=== PATIENT | male | born 1950 | race Caucasian/White ===

== ENCOUNTER 2019-03-12 06:06 | Day surgery (SDC) | payer OTHER ==
[~2019-03-12] VITALS: Ht 170.2 cm; Wt 90.0 kg
[~2019-03-12 06:06] MED LIST: SODIUM CHLORIDE 0.9% 1,000 ML IV ONE
[2019-03-12] MEDS ORDERED: LIDOCAINE 4% 50 ML SOLUTION TP ONE (06:07)
[2019-03-12] MEDS ORDERED: ALBUTEROL SULFATE 2.5 MG/0.5 ML NEB SOLUTION NEB ONE (06:07)
[2019-03-12] MEDS ORDERED: BENZOCAINE 20% 50 MCG/SPRAY 57 GM TP ONE (06:07)
[2019-03-12] MEDS ORDERED: EPINEPHrine 1:1,000 [1 MG/ML] AMP IM ONE (06:07)
[2019-03-12] MEDS ORDERED: LIDOCAINE 2% 5 ML JELLY TP ONE (06:07)
[2019-03-12] MEDS ORDERED: SODIUM CHLORIDE 0.9% 1,000 ML IV ONE (06:30)
[2019-03-12] MEDS ORDERED: INSU100V12 SQ (07:33)
[2019-03-12] MEDS ORDERED: ASPI-1182 PO (07:33)
[2019-03-12] MEDS ORDERED: MIDAZOLAM HCL 2 MG/2 ML VIAL ONE (07:59)
[2019-03-12] MEDS ORDERED: FentaNYL CITRATE-PF 100 MCG/2 ML VIAL ONE (07:59)
[2019-03-12] MEDS ORDERED: MethylPREDNISolone SOD SUCC 125 MG/2 ML VIAL IVP ONE (08:30)
[2019-03-12 13:00] LABS: GLUCOMETER DEV NAME(LOC) SDS.; GLUCOSE,POINT OF CARE 255 MG/DL (70-110)
[2019-03-12] MEDS ORDERED: OXYGEN THERAPY IH SCH (20:00)
== END 2019-03-12 09:55 | disposition home or self-care (01) ==
LOC: SURGERY 06:06
PROVIDERS: ATTEND Internal Medicine Critical Care Medicine
DX: J38.4 Edema of larynx (principal); B37.0 Candidal stomatitis; J45.909 Unspecified asthma, uncomplicated; J98.8 Other specified respiratory disorders; I10 Essential (primary) hypertension; E11.9 Type 2 diabetes mellitus without complications; F17.210 Nicotine dependence, cigarettes, uncomplicated; Z91.81 History of falling; Z87.01 Personal history of pneumonia (recurrent); Z86.010 Personal history of colon polyps; Z79.899 Other long term (current) drug therapy; Z98.890 Other specified postprocedural states
CPT/HCPCS: 31623; 31624; 71045; 82962; 87015; 87070; 87101; 87205; 87206; 87220; 93005; J0171; J2250; J2930; J3010; J7030; 88108; 88312